=== PATIENT | female | born 1990 | race African-American/Black ===

== ENCOUNTER 2019-12-24 19:00 | Emergency (ER) | payer MEDICAID ==
[~2019-12-24] VITALS: Ht 185.4 cm; Wt 72.7 kg
[2019-12-24 19:51] LABS: CLARITY,URINE CLEAR (Clear); COLOR,URINE YELLOW (Yellow); GLUCOSE, URINE NEGATIVE (Neg); KETONES,URINE NEGATIVE (Neg); LEUKOCYTE ESTERASE ,URINE NEGATIVE (Neg); NITRITES, URINE NEGATIVE (Neg); OCCULT BLOOD,URINE TRACE-INTACT (Neg); PROTEIN,URINE NEGATIVE (Neg); URINE HCG NEGATIVE (NEG); UROBILINOGEN,URINE 0.2 E.U/dL (0.2-1.0)
[2019-12-24 19:53] LABS: UA COLLECTION TYPE CLN CATCH MIDSTREAM
[2019-12-24 19:57] LABS: RBC,URINE NONE SEEN /HPF (0-2)
[2019-12-24 19:58] LABS: BACTERIA,URINE NONE SEEN /HPF (Neg); SQUAMOUS EPITHELIAL CELL,UR FEW /LPF (FEW); WBC,URINE 0-4 /HPF (0-4)
[2019-12-24] MEDS ORDERED: azithromycin 250mg tablet PO ONE ×2 (20:55→21:20)
[2019-12-24] MEDS ORDERED: CefTRIAXone 250MG IM Kit w/LIDOcaine IM ONE (21:00)
[2019-12-24] MEDS ORDERED: GENTAMICIN IM STA (21:17)
[2019-12-24] MEDS ORDERED: NORMAL SALINE IM STA (21:17)
[2019-12-24] MEDS ORDERED: ketorolac tromethamine 15mg/ml inj. IM ONE (21:25)
[2019-12-24] MEDS ORDERED: gentamicin 40 MG/1 ML inj IM ONE (21:25)
[2019-12-24 22:25] VITALS: BP 128/78
[2019-12-25] MEDS ORDERED: DICY10CA88 PO (20:17)
== END 2019-12-24 22:27 | disposition home or self-care (01) ==
LOC: ER 19:03
DX: N89.8 Other specified noninflammatory disorders of vagina (principal); M54.5 Low back pain; R10.9 Unspecified abdominal pain; R53.83 Other fatigue; Z88.0 Allergy status to penicillin; Z88.8 Allergy status to other drugs, medicaments and biological substances
CPT/HCPCS: 81001; 81025; 87210; 96372; 99284; J1580; J1885

== ENCOUNTER 2019-12-25 14:37 | Emergency (ER) | payer MEDICAID ==
[~2019-12-25] VITALS: Ht 185.4 cm; Wt 72.7 kg
[2019-12-25 15:49] LABS: BASOPHILS # (AUTO) 0.1 X10'3 (0-0.2); BASOPHILS % (AUTO) 1.7 % (0-1); EOSINOPHILS # (AUTO) 0.1 X10'3 (0-0.9); EOSINOPHILS % (AUTO) 1.7 % (0-6); HEMOGLOBIN 12.9 g/dl (12.0-16.0); LYMPHOCYTES % (AUTO) 40.9 % (21-51); MEAN CORPUSCULAR HEMOGLOBIN 28.2 PG (27.0-31.0); MEAN CORPUSCULAR HGB CONC 32.2 g/dL (33.0-36.5); MEAN CORPUSCULAR VOLUME 87.6 FL (78-98); MEAN PLATELET VOLUME 8.4 FL (7.4-10.4); MONOCYTES # (AUTO) 0.3 X10'3 (0-0.9); MONOCYTES % (AUTO) 6.3 % (2-12); NEUTROPHILS # (AUTO) 2.4 X10'3 (1.8-7.7); NEUTROPHILS % (AUTO) 49.4 % (42-75); PLATELET COUNT 197 X10'3 (140-440); RED BLOOD COUNT 4.57 X10'6 (4.20-5.60); RED CELL DISTRIBUTION WIDTH 13.7 % (11.5-14.5); WHITE BLOOD COUNT 4.9 X10'3 (4.5-11.0)
[2019-12-25 16:02] LABS: ALANINE AMINOTRANSFERASE 20 U/L (12-78); ALBUMIN 3.8 G/DL (3.4-5.0); ALBUMIN/GLOBULIN RATIO 1.2 (1.1-1.5); ALKALINE PHOSPHATASE 40 IU/L (46-116); ANION GAP 10 (8-16); ASPARTATE AMINO TRANSFERASE 17 U/L (10-37); BILIRUBIN,TOTAL 0.5 MG/DL (0.1-1.0); BLOOD UREA NITROGEN 10 MG/DL (7-18); CALCIUM 8.6 MG/DL (8.5-10.1); CHLORIDE 106 MMOL/L (99-107); CREATININE 0.91 MG/DL (0.40-0.90); GLUCOSE 78 MG/DL (70-104); LIPASE 133 U/L (73-393); POTASSIUM 3.9 MMOL/L (3.5-5.1); SODIUM 141 MMOL/L (135-145); TOTAL CARBON DIOXIDE 25.2 MMOL/L (24-32); TOTAL PROTEIN 7.1 G/DL (6.4-8.2); eGFR 87 ML/MIN
[2019-12-25] MEDS ORDERED: dicyclomine 10 MG capsule PO ONE (17:55)
[2019-12-25] MEDS ORDERED: famotidine 20mg tablet PO ONE (17:55)
[2019-12-25] MEDS ORDERED: mag hydrox/Alum hydrox/simeth 30ml oral suspension PO ONE (17:55)
--- NOTE | 2019-12-25 18:30 | NUR ---
DETECTIVE SUPERVISOR IN ROOM
[2019-12-25] MEDS ORDERED: iohexol 300mg/ml 100ml inj. ONE (19:02)
[2019-12-25 19:11] LABS: URINE HCG NEGATIVE (NEG)
[2019-12-25 19:17] LABS: CLARITY,URINE SLIGHTLY CLOUDY (Clear); COLOR,URINE YELLOW (Yellow); GLUCOSE, URINE NEGATIVE (Neg); KETONES,URINE NEGATIVE (Neg); LEUKOCYTE ESTERASE ,URINE TRACE (Neg); NITRITES, URINE NEGATIVE (Neg); OCCULT BLOOD,URINE NEGATIVE (Neg); PH,URINE 6.5 (4.8-8.0); PROTEIN,URINE NEGATIVE (Neg); UROBILINOGEN,URINE 0.2 E.U/dL (0.2-1.0)
[2019-12-25 19:26] LABS: BACTERIA,URINE FEW /HPF (Neg); RBC,URINE NONE SEEN /HPF (0-2); SQUAMOUS EPITHELIAL CELL,UR MODERATE /LPF (FEW); UA COLLECTION TYPE CLN CATCH MIDSTREAM; WBC,URINE 0-4 /HPF (0-4)
[2019-12-25] MEDS ORDERED: DICY10CA88 PO (20:17)
[2019-12-25 20:36] VITALS: BP 116/69
== END 2019-12-25 20:43 | disposition home or self-care (01) ==
LOC: ER 14:38
DX: R10.9 Unspecified abdominal pain (principal); F17.200 Nicotine dependence, unspecified, uncomplicated; R10.2 Pelvic and perineal pain; N89.8 Other specified noninflammatory disorders of vagina; Z88.0 Allergy status to penicillin; Z88.8 Allergy status to other drugs, medicaments and biological substances; Z79.899 Other long term (current) drug therapy
CPT/HCPCS: 36415; 74177; 76700; 80053; 81001; 81025; 83690; 85025; 87088; 87491; 87591; 99285; Q9967